=== PATIENT | male | born 1945 | race Caucasian/White ===

== ENCOUNTER → 2017-09-04 | Outpatient (CLI) | payer MEDICARE ==
[~2017-09-04] MED LIST: PROHANCE 279.3MG/ML 15ML VIAL (A9576) As Ordered
== END ==
LOC: M RAD 09:28
DX: C61 Malignant neoplasm of prostate (principal)
CPT/HCPCS: A9576

== ENCOUNTER → 2017-09-15 | Outpatient (CLI) | payer MEDICARE | LOC: M SMT PRO 08:57 | DX: C61 Malignant neoplasm of prostate (principal) | CPT/HCPCS: G0416 ==

== ENCOUNTER 2018-08-03 08:07 | Day surgery (SDC) | payer MEDICARE ==
[~2018-08-03] VITALS: Ht 167.6 cm; Wt 70.3 kg
[~2018-08-03 08:07] MED LIST changes: +FLOM0.4C39 PO; +MULT1TAB10 PO; +PRAM0.126 PO; +PREG50CA PO; +PREV15CA18 PO; -PROHANCE 279.3MG/ML 15ML VIAL (A9576) As Ordered; +ZYLO300T6 PO
[2018-08-03] MEDS ORDERED: NS 1,000 ML IV ONE (08:15)
[2018-08-03] MEDS ORDERED: LIDOCAINE 2% INJ 100 MG/5 ML SDV (FOR ANES.) As Ordered ONE (09:36)
[2018-08-03] MEDS ORDERED: PROPOFOL 200 MG/20 ML VIAL As Ordered ONE (09:36)
--- NOTE | 2018-08-03 09:46 | ROOR ---
Patient Name: Franklin Thurston Procedure Date: 08/03/2018 9:24 AM Date of : 1945 Age: 72 Room: [facility] Gender: Male Note Status: Finalized Procedure: Colonoscopy Indications: High risk colon cancer surveillance: Personal history of colonic polyps, Last colonoscopy: June 2013, Family history of colon cancer Providers: Ming GR MD Referring MD: CHRISTIE RAI MD Requesting Provider: Medicines: Monitored Anesthesia Care Complications: No immediate complications. Procedure: Pre-Anesthesia Assessment: - The heart rate, respiratory rate, oxygen saturations, blood pressure, adequacy of pulmonary ventilation, and response to care were monitored throughout the procedure. The Colonoscope was introduced through the anus and advanced to the terminal ileum, with identification of the appendiceal orifice and IC valve. The colonoscopy was performed without difficulty. The patient tolerated the procedure well. The quality of the bowel preparation was good. Findings: A 4 mm polyp was found in the sigmoid colon. The polyp was sessile. The polyp was removed with a cold snare. Resection and retrieval were complete. Mild sigmoid diverticulosis and small internal hemorrhoids. The exam was otherwise without abnormality on direct and retroflexion views. Impression: - One 4 mm polyp in the sigmoid colon, removed with a cold snare. Resected and retrieved. - Moderate sigmoid diverticulosis and moderate internal hemorrhoids. - The colon examination was otherwise normal on direct and retroflexion views. Recommendation: - Repeat colonoscopy in 5 years for surveillance. Ming Gr MD Ming GR MD 08/03/2018 9:45:53 AM Electronically signed by Ming GR MD Number of Addenda: 0 Note Initiated On: 08/03/2018 9:24 AM Estimated Blood Loss: Estimated blood loss: none. Estimated blood loss: none.
[2018-08-03 10:05] VITALS: BP 125/60
== END 2018-08-03 10:13 | disposition home or self-care (01) ==
LOC: M OPP 08:07
PROVIDERS: ATTEND Internal Medicine Gastroenterology
DX: D12.5 Benign neoplasm of sigmoid colon (principal); K57.30 Diverticulosis of large intestine without perforation or abscess without bleeding; Z86.010 Personal history of colon polyps; Z80.0 Family history of malignant neoplasm of digestive organs

== ENCOUNTER → 2018-10-16 | Outpatient (CLI) | payer MEDICARE ==
--- NOTE | 2018-10-16 17:12 | REP ---
Prostate sonography: History: Elevated PSA Sonographic findings: Trans rectal prostate sonography demonstrates unremarkable seminal vesicles. Prostate gland is heterogeneously enlarged with calcifications and cystic changes noted. Glandular dimensions are measured at 4.3 x 2.6 x 5.6 cm with a calculated glandular volume of 32.8 ml. Transrectal sonographic guidance is provided to Dr. Giron who performed trans rectal ultrasound guided needle biopsy procedure . Electronically Signed by Juan Alberto Leung MD 10/16/2018 05:04 P
== END ==
LOC: M SMT PRO 08:29
PROVIDERS: ATTEND Urology
DX: C61 Malignant neoplasm of prostate (principal)
CPT/HCPCS: 55700; 76942; G0416

== ENCOUNTER → 2019-04-27 | Outpatient (CLI) | payer MEDICARE ==
--- NOTE | 2019-04-27 12:17 | REP ---
MRI RIGHT SHOULDER WITHOUT CONTRAST: HISTORY: Right shoulder pain. No comparison shoulder imaging is available. The patient relates pain X1 year. TECHNIQUE: Axial, oblique coronal and oblique sagittal imaging planes utilized. T1-and T2-weighted scans were included with and without fat saturation. MRI FINDINGS: There is advanced acromioclavicular joint osteoarthritis with fragmented spurring, joint fluid, marrow edema, and bony and soft tissue hypertrophy. This indents the musculotendinous junction region of the supraspinatus. There is acromion process spurring inferolaterally as well. There is severe chondromalacia involving the glenohumeral articulation cartilage. There is a moderate glenohumeral joint effusion with fluid accumulating in the subcoracoid recess. There is joint fluid in the biceps tendon sheath. The biceps tendon sheath contains an oval-shaped rounded loose body surrounded by a tendon sheath fluid 8 mm in diameter. There is some tendinosis change in the biceps tendon. Subscapularis and infraspinatus tendons appear intact. There is fairly advanced tendinosis in the supraspinatus tendon with no evidence of complete cuff tear. There is fraying of the posterior labrum. There is fraying and irregularity of the anterior labrum and fluid signal intensity is seen underlying the base of the labrum consistent with a degenerative nondisplaced anterior labral cartilage tear. No other loose body is seen. IMPRESSION: Advanced acromioclavicular joint osteoarthropathy. There is a glenohumeral joint effusion. An 8 mm loose body is seen in the biceps tendon sheath portion of the joint. 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 Supraspinatus and biceps tendinosis. Degenerative tear anterior labral cartilage. Electronically Signed by Juan Alberto Leung MD 04/27/2019 01:30 P
== END ==
LOC: M RAD 10:33
PROVIDERS: ATTEND Nurse Practitioner Family
DX: M25.511 Pain in right shoulder (principal)

== ENCOUNTER → 2020-11-24 | Outpatient (CLI) | payer MEDICARE, OTHER ==
[~2020-11-24] MED LIST changes: -PREV15CA18 PO; +PREV15CA24 PO
--- NOTE | 2020-11-24 12:37 | REPPI ---
INDICATION: PSA. COMPARISON: None. TECHNIQUE: Transrectal prostate ultrasound performed, with ultrasound guidance provided for Dr. Giron who performed ultrasound-guided biopsy. FINDINGS: Prostate measures 3.9 x 3.0 x 4.9 cm, total volume 28.8 mL. IMPRESSION: Prostate ultrasound as above, ultrasound guidance was provided for Dr. Giron who performed ultrasound-guided biopsy of the prostate. <Electronically signed by Meet Arana > 11/24/20 [id number]
== END ==
LOC: M PLAIMG 08:44 → MERGE 08:44
PROVIDERS: ATTEND Urology
DX: C61 Malignant neoplasm of prostate (principal)
CPT/HCPCS: 88341; 88342; G0416

== ENCOUNTER → 2021-11-30 | Outpatient (CLI) | payer MEDICARE | LOC: M PLALAB 14:58 | PROVIDERS: ATTEND Urology | DX: C61 Malignant neoplasm of prostate (principal) ==

== ENCOUNTER 2023-12-05 06:52 | Day surgery (SDC) | payer MEDICARE ==
[~2023-12-05] VITALS: Ht 167.6 cm; Wt 69.2 kg
[~2023-12-05 06:52] MED LIST changes: +IRON65TA2 PO; +NS 1,000 ML IV ONE; +PRAM0.5T4 PO; +TAMS1CAP17 PO
[2023-12-05] MEDS ORDERED: propofoL 500 MG/50 ML VIAL As Ordered ONE (08:19)
[2023-12-05] MEDS ORDERED: LIDOCAINE 2% 100MG/5ML SDV (FOR ANES.) As Ordered ONE (08:19)
[2023-12-05] MEDS ORDERED: fentaNYL 100 MCG/2 ML INJECTION As Ordered ONE (08:31)
[2023-12-05 08:37] VITALS: TEMP 97.1
[2023-12-05 08:51] VITALS: BP 129/68; O2SAT 96
== END 2023-12-05 08:56 | disposition home or self-care (01) ==
LOC: M OPP 06:52
PROVIDERS: ATTEND Internal Medicine Gastroenterology
DX: Z86.010 Personal history of colon polyps (principal); Z80.0 Family history of malignant neoplasm of digestive organs; K64.8 Other hemorrhoids; K57.30 Diverticulosis of large intestine without perforation or abscess without bleeding; Z79.899 Other long term (current) drug therapy; Z88.0 Allergy status to penicillin; Z88.5 Allergy status to narcotic agent; Z88.8 Allergy status to other drugs, medicaments and biological substances
CPT/HCPCS: G0105; J3010

== ENCOUNTER → 2025-01-09 | Outpatient (CLI) | payer MEDICARE, OTHER ==
[~2025-01-09] MED LIST changes: -FLOM0.4C39 PO; -NS 1,000 ML IV ONE; -PREG50CA PO; +PREG50CA87 PO; +PROHANCE 279.3MG/ML 15ML VIAL ONE; +TAMS-18 PO
== END ==
LOC: M PLAIMG 14:50
PROVIDERS: ATTEND Urology
DX: C61 Malignant neoplasm of prostate (principal)
CPT/HCPCS: 72197; A9576

== ENCOUNTER → 2025-02-18 | Outpatient (REF) | payer MEDICARE ==
[~2025-02-18] MED LIST changes: -PROHANCE 279.3MG/ML 15ML VIAL ONE
== END ==
LOC: M SMT 13:21
PROVIDERS: ATTEND Urology
DX: C61 Malignant neoplasm of prostate (principal)

== ENCOUNTER → 2025-03-03 | Outpatient (REF) | payer MEDICARE ==
[2025-03-03 17:49] LABS: APPEARANCE, URINE HAZY (CLEAR); BACTERIA, URINE AUTO NEGATIVE (NEGATIVE); BILIRUBIN, URINE AUTO NEGATIVE (NEGATIVE); BLOOD, URINE BLOOD 3+ (NEGATIVE); GLUCOSE, URINE (UA) AUTO NEGATIVE (NEGATIVE); KETONE, URINE AUTO NEGATIVE (NEGATIVE); LEUKOCYTE ESTERASE, URINE AUTO NEGATIVE (NEGATIVE); NITRITE, URINE AUTO NEGATIVE (NEGATIVE); PROTEIN, URINE AUTO NEGATIVE (NEGATIVE); RBC, URINE AUTO 0 /HPF (0-3); SPECIFIC GRAVITY URINE AUTO 1.020 (1.002-1.035); SQUAMOUS EPITHELIAL CELL UR AU 0 /HPF (0-6); UROBILINOGEN, URINE AUTO 0.2 mg/dL (0.0-2.0); WBC, URINE AUTO 6 /HPF (0-3)
== END ==
LOC: M SMT 17:04
PROVIDERS: ATTEND Urology
DX: R31.0 Gross hematuria (principal)

== ENCOUNTER → 2025-03-06 | Outpatient (CLI) | payer MEDICARE, MEDICAID | LOC: M RAD 10:58 | PROVIDERS: ATTEND Urology | DX: C61 Malignant neoplasm of prostate (principal) | CPT/HCPCS: 78306; A9503 ==